=== PATIENT | female | born 1980 | race Caucasian/White ===

== ENCOUNTER 2016-11-09 14:13 | Emergency (ER) | payer MEDICAID ==
[2016-11-09 14:14] VITALS: BP 134/82; PULSE 103; RESP 16; TEMP 98.2; O2SAT 98
--- NOTE | 2016-11-09 14:45 | PD ---
HPI Chief Complaint: Injury Time Seen by Provider: 14:38 Travel History International Travel<30 days: No Contact w/Intl Traveler<30days: No Traveled to known affect area: No History of Present Illness HPI 36-year-old female here with complaint of right elbow pain. She had a mechanical fall landing on her right elbow 1.5 weeks ago and was seen at outside hospital emergency department. X-ray was obtained and negative. She is placed in long arm splint. Patient was instructed to follow-up with orthopedic surgery. She never did. The splint was uncomfortable and she removed this and is still having pain in the right elbow with range of motion particularly supination. PFSH Past Medical History Medical History: Denies Significant Hx Diminished Hearing: No Tetanus Vaccination: Unknown ?: Not LMP: 11/08/16 Past Surgical History Surgical History: No Previous Surgery Social History Alcohol Use: No Tobacco Use: No Substance Use: No Allergies-Medications (Allergen,Severity, Reaction): Coded Allergies: No Known Allergies (Unverified , 11/09/16) Reported Meds & Prescriptions Reported Meds & Active Scripts Active No Active Prescriptions or Reported Medications Review of Systems Except as stated in HPI: all other systems reviewed are Neg Physical Exam Narrative GENERAL: Well-appearing female in no acute distress SKIN: Focused skin assessment warm/dry. HEAD: Normocephalic. EYES: No scleral icterus. No injection or drainage. ENT: Mucous membranes pink and moist. NECK: Supple CARDIOVASCULAR: Regular rate and rhythm. RESPIRATORY: No accessory muscle use. MUSCULOSKELETAL: Right upper extremity without obvious deformity. Slight amount of pain with palpation over the radial head and the olecranon. Pain in the radial head region with extreme supination but otherwise range of motion and strength intact. Good distal sensation and pulses. No obvious deformity. NEUROLOGICAL: Normal gait PSYCHIATRIC: Appropriate mood and affect; insight and judgment normal. Data Data Last Documented VS Vital Signs Date Time Temp Pulse Resp B/P Pulse Ox O2 Delivery O2 Flow Rate FiO2 11/09/16 14:14 98.2 103 16 134/82 98 Orders Elbow, Complete (4 Vws) (11/09/16 ) [facility] Medical Decision Making Medical Screen Exam Complete: Yes Emergency Medical Condition: Yes Medical Record Reviewed: Yes Differential Diagnosis 36-year-old female here with complaint of right elbow pain status post fall 1.5 weeks ago. Differential includes fracture, sprain, dislocation, abrasion, contusion. Narrative Course X-ray of the right elbow showed no evidence of fracture. 1.5 weeks out she should have pulmonary formation if there were an occult fracture and this is not seen. Diagnosis Primary Impression: Sprain of right elbow Qualified Code: S53.401A - Sprain of right elbow, initial encounter Referrals: Primary Care Physician as needed Additional Instructions: Follow-up with primary care physician if symptoms persist. Med/Other Pt SpecificInfo: No Change to Meds Scripts No Active Prescriptions or Reported Meds Disposition: 01 DISCHARGE HOME Condition: Stable Lucie Trejo MD November 09, 2016 14:45
--- NOTE | 2016-11-09 14:57 | RADRPT ---
EXAM DATE/TIME: 11/09/2016 14:53 [facility] COMPARISON: No previous studies available for comparison. INDICATIONS : Posterior right elbow pain after falling 9 days ago. MEDICAL HISTORY : None. SURGICAL HISTORY : None. ENCOUNTER: Initial ACUITY: 1 week PAIN SCORE: 6/10 LOCATION: Right posterior elbow. FINDINGS: Four views of the right elbow demonstrate no fracture or dislocation. No joint effusion is visualized . No soft tissue abnormality or radiopaque foreign body is identified. CONCLUSION: No acute right elbow abnormality is identified. Jacob Esqueda MD on November 09, 2016 at 14:53 Board Certified Radiologist. This report was verified electronically.
== END 2016-11-09 15:07 | disposition home or self-care (01) ==
LOC: NEPD 14:13
DX: S53.401A Unspecified sprain of right elbow, initial encounter (principal); W19.XXXA Unspecified fall, initial encounter
CPT/HCPCS: 73080; 99283